=== PATIENT | male | born 1950 | race Caucasian/White ===

== ENCOUNTER 2017-02-19 12:05 | Emergency (ER) | payer MEDICARE, OTHER | END 2017-02-19 13:40 | disposition home or self-care (01) | LOC: FTE 12:05 | DX: R59.0 Localized enlarged lymph nodes (principal); I10 Essential (primary) hypertension; Z79.82 Long term (current) use of aspirin; Z87.891 Personal history of nicotine dependence; Z98.61 Coronary angioplasty status | CPT/HCPCS: 99284 ==

== ENCOUNTER 2017-08-03 12:05 | Inpatient (IN) | payer MEDICARE, OTHER ==
[2017-08-03 12:23] LABS: ADD MAN DIFF? NO
[2017-08-03 12:24] LABS: BASOPHIL # 0.1 10^3/ul (0.0-0.1); BASOPHILS % 0.8 % (0.0-2.0); EOSINOPHILS # 0.2 10^3/ul (0.0-0.5); HEMATOCRIT 41.9 % (42.0-52.0); HEMOGLOBIN 13.2 g/dl (14.0-18.0); LYMPHOCYTES # 3.2 10^3/ul (0.8-2.9); LYMPHOCYTES % 32.3 % (15.0-51.0); MEAN CORPUSCULAR HEMOGLOBIN 25.6 pg (29.0-33.0); MEAN CORPUSCULAR HGB CONC 31.5 g/dl (32.0-37.0); MEAN CORPUSCULAR VOLUME 81.4 fl (82.0-101.0); MEAN PLATELET VOLUME 11.2 fl (7.4-10.4); MONOCYTE # 1.1 10^3/ul (0.3-0.9); MONOCYTES % 10.8 % (0.0-11.0); NEUTROPHIL # 5.4 10^3/ul (1.6-7.5); NEUTROPHILS % 53.8 % (39.0-77.0); PLATELET COUNT 247 10^3/UL (140-415); RED BLOOD COUNT 5.15 10^6/ul (4.70-6.10); RED CELL DISTRIBUTION WIDTH 15.3 % (11.5-14.5)
[2017-08-03 12:24] LABS: WHITE BLOOD COUNT 9.9 10^3/ul (4.8-10.8)
[2017-08-03] MEDS ORDERED: LIDOCAINE 1% (MDV) 20 ML INJ (12:26)
[2017-08-03] MEDS ORDERED: HEPARIN 1000 UNITS/ML 10 ML INJ ×2 (12:26→13:14)
[2017-08-03] MEDS ORDERED: IODIXANOL LOCM 100 ML BTL ×2 (12:26→14:00)
[2017-08-03] MEDS ORDERED: VERAPAMIL 5 MG INJ (12:27)
[2017-08-03] MEDS ORDERED: MIDAZOLAM 1 MG/ML 2 ML INJ (12:27)
[2017-08-03] MEDS ORDERED: FENTAnyl 50 MCG/ML VIAL (12:27)
[2017-08-03] MEDS ORDERED: NITROGLYCERIN (IC) 100 MCG/ML INJ (12:27)
[2017-08-03] MEDS ORDERED: NITROGLYCERIN (SL) 0.4 MG TAB SL (12:30)
[2017-08-03 12:36] LABS: ANION GAP 14 (8-16); BLOOD UREA NITROGEN 20 mg/dl (7-20); CALCIUM 9.5 mg/dl (8.4-10.2); CARBON DIOXIDE 23 mmol/L (21-31); CHLORIDE 107 mmol/L (97-110); CREATININE 1.09 mg/dl (0.61-1.24); GLUCOSE 140 mg/dl (70-220); SODIUM 141 mmol/L (135-144)
[2017-08-03] MEDS: HYDROmorphONE 1 MG/ML SYG IV (12:36)
[2017-08-03] MEDS: NITROGLYCERIN 2% 1 GM OINT PKT TD (12:36)
[2017-08-03 12:39] LABS: POTASSIUM 2.9 mmol/L (3.5-5.1)
[2017-08-03] MEDS ORDERED: ONDANSETRON 4 MG INJ ×2 (12:48→15:00)
[2017-08-03 12:49] LABS: TROPONIN-I < 0.012 ng/ml (0.000-0.120)
[2017-08-03] MEDS: EPTIFIBATIDE 100 ML IV ×2 (13:27→15:45)
[2017-08-03] MEDS ORDERED: EPTIFIBATIDE 20 ML (13:54)
[2017-08-03] MEDS ORDERED: EPTIFIBATIDE 100 ML IV (13:54)
[2017-08-03] MEDS ORDERED: POTASSIUM CHLORIDE 50 ML (15:26)
[2017-08-03] MEDS ORDERED: PRASUGREL HYDROCHLORIDE 10 MG TABLET PO ×2 (15:32→17:46)
[2017-08-03] MEDS ORDERED: DIAZEPAM 2 MG TAB PO (16:00)
[2017-08-03] MEDS ORDERED: ZOLPIDEM 5 MG TAB PO (16:00)
[2017-08-03] MEDS ORDERED: DOCUSATE SODIUM 100 MG CAP PO (16:00)
[2017-08-03] MEDS ORDERED: AL HYDROX/MG HYDROX/SIMETH 30 ML CUP PO (16:00)
[2017-08-03] MEDS ORDERED: NACL 0.9% 3 ML SYG IV (16:00)
[2017-08-03] MEDS: SOD CHLORIDE 0.9% 1,000 ML IV (16:23)
[2017-08-03] MEDS: POTASSIUM CHLORIDE (SR) 20 MEQ TAB PO ×2 (16:53→22:16)
[2017-08-03] MEDS: PRASUGREL HYDROCHLORIDE 10 MG TABLET PO (17:50)
[2017-08-03 18:12] LABS: ADD MAN DIFF? NO
[2017-08-03 18:13] LABS: BASOPHILS % 0.3 % (0.0-2.0); EOSINOPHILS % 0.1 % (0.0-7.0); HEMOGLOBIN 12.9 g/dl (14.0-18.0); LYMPHOCYTES # 0.9 10^3/ul (0.8-2.9); LYMPHOCYTES % 5.6 % (15.0-51.0); MEAN CORPUSCULAR HGB CONC 32.3 g/dl (32.0-37.0); MEAN CORPUSCULAR VOLUME 80.6 fl (82.0-101.0); MEAN PLATELET VOLUME 10.8 fl (7.4-10.4); MONOCYTES % 6.5 % (0.0-11.0); NEUTROPHIL # 13.5 10^3/ul (1.6-7.5); PLATELET COUNT 201 10^3/UL (140-415); RED BLOOD COUNT 4.96 10^6/ul (4.70-6.10); RED CELL DISTRIBUTION WIDTH 15.4 % (11.5-14.5)
[2017-08-03 18:13] LABS: WHITE BLOOD COUNT 15.5 10^3/ul (4.8-10.8)
[2017-08-03 19:17] LABS: ANION GAP 12 (8-16); BLOOD UREA NITROGEN 18 mg/dl (7-20); CALCIUM 8.7 mg/dl (8.4-10.2); CARBON DIOXIDE 21 mmol/L (21-31); CHLORIDE 108 mmol/L (97-110); CREATININE 0.78 mg/dl (0.61-1.24); GLUCOSE 147 mg/dl (70-220); POTASSIUM 3.8 mmol/L (3.5-5.1); SODIUM 137 mmol/L (135-144)
[2017-08-03 19:22] LABS: CK INDEX 2.2; CREATINE KINASE 7990 IU/L (23-200)
[2017-08-03] MEDS ORDERED: ATORVASTATIN 40 MG TAB PO (21:00)
[2017-08-03] MEDS: ONDANSETRON 4 MG INJ IV (21:25)
[2017-08-03] MEDS: ATORVASTATIN 80 MG TAB PO (21:39)
[2017-08-03] MEDS: LOSARTAN 25 MG TAB PO (21:40)
[2017-08-04] MEDS: ONDANSETRON 4 MG INJ IV (01:25)
[2017-08-04 01:53] LABS: CREATINE KINASE 7127 IU/L (23-200)
[2017-08-04 02:04] LABS: CK INDEX 2.3
[2017-08-04 05:17] LABS: ADD MAN DIFF? NO
[2017-08-04 05:23] LABS: WHITE BLOOD COUNT 13.1 10^3/ul (4.8-10.8)
[2017-08-04 05:23] LABS: BASOPHILS % 0.2 % (0.0-2.0); EOSINOPHILS % 0.1 % (0.0-7.0); HEMATOCRIT 38.7 % (42.0-52.0); HEMOGLOBIN 12.5 g/dl (14.0-18.0); LYMPHOCYTES # 1.1 10^3/ul (0.8-2.9); LYMPHOCYTES % 8.4 % (15.0-51.0); MEAN CORPUSCULAR HEMOGLOBIN 25.9 pg (29.0-33.0); MEAN CORPUSCULAR HGB CONC 32.3 g/dl (32.0-37.0); MEAN CORPUSCULAR VOLUME 80.3 fl (82.0-101.0); MEAN PLATELET VOLUME 11.5 fl (7.4-10.4); MONOCYTE # 1.1 10^3/ul (0.3-0.9); MONOCYTES % 8.2 % (0.0-11.0); NEUTROPHIL # 10.8 10^3/ul (1.6-7.5); NEUTROPHILS % 82.6 % (39.0-77.0); PLATELET COUNT 221 10^3/UL (140-415); RED BLOOD COUNT 4.82 10^6/ul (4.70-6.10); RED CELL DISTRIBUTION WIDTH 15.9 % (11.5-14.5)
[2017-08-04 05:57] LABS: ALANINE AMINOTRANSFERASE 113 IU/L (13-69); ALBUMIN/GLOBULIN RATIO 1.21; ALKALINE PHOSPHATASE 78 IU/L (42-121); ANION GAP 11 (8-16); ASPARTATE AMINO TRANSFERASE 720 IU/L (15-46); BILIRUBIN,INDIRECT 0.6 mg/dl (0-1.1); BILIRUBIN,TOTAL 0.6 mg/dl (0.2-1.3); BLOOD UREA NITROGEN 16 mg/dl (7-20); CALCIUM 8.7 mg/dl (8.4-10.2); CARBON DIOXIDE 28 mmol/L (21-31); CHLORIDE 104 mmol/L (97-110); GLUCOSE 128 mg/dl (70-220); POTASSIUM 3.8 mmol/L (3.5-5.1); SODIUM 139 mmol/L (135-144); TOTAL PROTEIN 7.3 g/dl (6.1-8.1)
[2017-08-04] MEDS: PANTOPRAZOLE (EC) 40 MG TAB PO (06:38)
[2017-08-04 07:12] LABS: CHOL/HDL RATIO 2.8 RATIO; HDL CHOLESTEROL 52 mg/dl (30-78); LDL CHOLESTEROL,CALCULATED 77 mg/dl; TRIGLYCERIDES 94 mg/dl (0-149)
[2017-08-04 07:12] LABS: CHOLESTEROL 148 mg/dl (100-200)
[2017-08-04 08:10] LABS: HEMOGLOBIN A1C 6.2 % (0-5.9)
[2017-08-04] MEDS ORDERED: ASPIRIN (EC) 81 MG TAB PO (09:00)
[2017-08-04] MEDS ORDERED: AMLODIPINE 10 MG TAB PO (09:00)
[2017-08-04] MEDS ORDERED: PRASUGREL HYDROCHLORIDE 10 MG TABLET PO (09:00)
[2017-08-04] MEDS ORDERED: ATENOLOL 100 MG TAB PO (09:00)
[2017-08-04] MEDS: VALSARTAN 160 MG TAB PO (09:18)
[2017-08-04] MEDS: ASPIRIN 81 MG TAB PO (09:18)
[2017-08-04] MEDS: PRASUGREL HYDROCHLORIDE 10 MG TABLET PO (09:19)
[2017-08-04] MEDS: METOPROLOL (XL) 50 MG TAB PO (09:19)
[2017-08-04] MEDS: ENOXAPARIN 30 MG/0.3 ML SYG SC (09:20)
[2017-08-04] MEDS ORDERED: TAMSULOSIN (SR) 0.4 MG CAP PO (21:00)
== END 2017-08-04 13:15 | disposition home or self-care (01) | DRG 250 ==
LOC: E/R 12:05 → ICU 12:35
PROC: 02703ZZ Dilation of Coronary Artery, One Artery, Percutaneous Approach (ICD-10-PCS; principal; 2017-08-03 12:29)
PROC: 5A2204Z Restoration of Cardiac Rhythm, Single (ICD-10-PCS; 2017-08-03 12:29)
DX: I21.09 ST elevation (STEMI) myocardial infarction involving other coronary artery of anterior wall (principal); I49.01 Ventricular fibrillation; T82.817A Embolism due to cardiac prosthetic devices, implants and grafts, initial encounter; I25.119 Atherosclerotic heart disease of native coronary artery with unspecified angina pectoris; I10 Essential (primary) hypertension; Z95.5 Presence of coronary angioplasty implant and graft; E78.5 Hyperlipidemia, unspecified; E87.6 Hypokalemia
CPT/HCPCS: 71045; 80048; 80053; 80061; 82550; 82553; 83036; 84484; 85025; 87081; 93005; 93306; 93454

== ENCOUNTER 2018-04-17 06:59 | Observation (INO) | payer MEDICARE, OTHER ==
[2018-04-16] MEDS: DIAZEPAM 5 MG TAB PO (23:30)
[~2018-04-17 06:59] MED LIST: SOD CHLORIDE 0.9% 1,000 ML IV
[2018-04-17] MEDS ORDERED: HEPARIN 1000 UNITS/ML 10 ML INJ (09:05)
[2018-04-17] MEDS ORDERED: NITROGLYCERIN (IC) 100 MCG/ML INJ (09:05)
[2018-04-17] MEDS ORDERED: IODIXANOL LOCM 100 ML BTL ×3 (09:05→10:36)
[2018-04-17] MEDS ORDERED: VERAPAMIL 5 MG INJ (09:05)
[2018-04-17] MEDS ORDERED: LIDOCAINE 1% (MDV) 20 ML INJ (09:05)
[2018-04-17] MEDS ORDERED: MIDAZOLAM 1 MG/ML 2 ML INJ (09:09)
[2018-04-17] MEDS ORDERED: FENTAnyl 50 MCG/ML VIAL (09:09)
[2018-04-17] MEDS ORDERED: PRASUGREL HYDROCHLORIDE 10 MG TABLET PO (09:12)
[2018-04-17] MEDS ORDERED: ASPIRIN 81 MG TAB (09:12)
[2018-04-17] MEDS ORDERED: ONDANSETRON 4 MG INJ IV (11:00)
[2018-04-17] MEDS ORDERED: ACETAMINOPHEN 325 MG TAB PO (11:00)
[2018-04-17] MEDS ORDERED: AL HYDROX/MG HYDROX/SIMETH 30 ML CUP PO (11:00)
[2018-04-17] MEDS ORDERED: morphine 2 MG INJ IV (11:00)
[2018-04-17] MEDS: SOD CHLORIDE 0.9% 1,000 ML IV (11:50)
[2018-04-18] MEDS: PRASUGREL HYDROCHLORIDE 10 MG TABLET PO (08:38)
[2018-04-18] MEDS: ISOSORBIDE MONONITRATE(SR)30 MG TAB PO (08:38)
[2018-04-18] MEDS: ASPIRIN (EC) 81 MG TAB PO (08:38)
[2018-04-18] MEDS: METOPROLOL (XL) 50 MG TAB PO (08:38)
[2018-04-18] MEDS ORDERED: NON-FORMULARY/PATIENT OWN MED (Eplerenone (Inspra) 25 MG) PO (09:00)
== END 2018-04-18 10:37 | disposition home or self-care (01) ==
LOC: SDS 06:59 → TEL 06:59 → SDS 21:11 → TEL 11:00
DX: I25.119 Atherosclerotic heart disease of native coronary artery with unspecified angina pectoris (principal); I25.5 Ischemic cardiomyopathy; I25.2 Old myocardial infarction
CPT/HCPCS: 92920; 92978; 93458; G0378